=== PATIENT | female | born 1990 | race Caucasian/White ===

== ENCOUNTER → 2024-11-29 | Outpatient (CLI) | payer BC ==
--- NOTE | 2024-11-30 14:40 | P.PCN ---
Date of Procedure: 11/29/24 Operative Findings: Home sleep study report Date of service is 11/29/2024 History This is a 34-year-old female patient with known history of severe persistent bronchial asthma, who is also having loud snoring and witnessed apneas and chronic fatigue and sleepiness. Based on that, the patient was given a screening home sleep study to rule out underlying obstructive sleep apnea. Pertinent physical findings Weight is 147 with a body mass index of 26.9 Technical description The [employer] system was used to complete his home sleep study. This is a type III home sleep study evaluation. The total recording duration was 9 hours and 12 minutes. The study started at 9:47 PM and ended at 7 AM. There was a total of 7 hours and 40 minutes of flow monitoring and 8 hours and 57 minutes of oxygen saturation monitoring. This was an adequate study Results The sleep study showed a total of 2 obstructive apneas and 6 obstructive hypopneas. The resulting AHI was 1 Cardiac analysis Average heart rate was 65 with a minimum heart rate of 52 and a maximum heart of 91 Oxygenation analysis The baseline pulse ox while awake was 99%. Average pulse ox during sleep was 96%. Minimum pulse ox was 84% and the patient spent approximate 24 minutes of sleep time below pulse ox of 89% Plan Primary snoring, no evidence of any significant sleep breathing disorder. The patient has a AHI of 1. Severe persistent bronchial asthma currently inactive and stable Body mass index of 26.9 Chronic urticaria History of nasal prior sinus polyps Plan This is a negative study. No need for any intervention at this point in time. Optimize sleep hygiene measures. Maintain regular sleep schedule. Optimized comorbidities including chronic bronchial asthma. Will follow-up in the office.
== END ==
LOC: 3 N SLEEP 11:07
PROVIDERS: ATTEND Internal Medicine Critical Care Medicine
DX: G47.10 Hypersomnia, unspecified (principal); J45.50 Severe persistent asthma, uncomplicated; L50.8 Other urticaria; Z87.09 Personal history of other diseases of the respiratory system